=== PATIENT | male | born 1960 | race American Indian/Alaskan Native ===

== ENCOUNTER 2018-04-15 21:30 | Emergency (ER) | payer MEDICAID, OTHER ==
[2018-04-15 21:43] VITALS: BP 151/101; PULSE 74; RESP 20; TEMP 97.6; O2SAT 100
[2018-04-15] MEDS ORDERED: DiphenhydrAMINE 50 mg/ml Inj IM STA (22:13)
[2018-04-15] MEDS ORDERED: DiphenhydrAMINE 50 mg/ml Inj ONE (22:19)
--- NOTE | 2018-04-15 22:27 | C.PDOC ---
History Of Present Illness 58 year old male presents to the ER with a complaint of itchy rash to the bilateral groin area for the past 2 weeks. Patient states the rash is now severely itchy and radiating to the right hip, he initially put peroxide water on it with relief but has now worsened over the past few days. Denies use of new meds or OTC topical medication use. Time Seen by Provider: 04/15/18 21:47 Chief Complaint (Nursing): Abnormal Skin Integrity History Per: Patient History/Exam Limitations: no limitations Onset/Duration Of Symptoms: Days Current Symptoms Are (Timing): Still Present Quality Of Symptoms: Itching Recent travel outside of the [place]: No Past Medical History Reviewed: Historical Data, Nursing Documentation, Vital Signs Vital Signs: Last Vital Signs Temp 97.6 F 04/15/18 21:40 Pulse 74 04/15/18 21:40 Resp 20 04/15/18 21:40 BP 151/101 H 04/15/18 21:40 Pulse Ox 100 04/15/18 21:40 - Medical History PMH: HTN Denies: Diabetes, Hepatitis, HIV, Seizures, Sexually Transmitted Disease Family History: States: Unknown Family Hx - Social History Hx Tobacco Use: No Hx Alcohol Use: Yes Hx Substance Use: Yes - Immunization History Hx Tetanus Toxoid Vaccination: No Hx Influenza Vaccination: No Hx Pneumococcal Vaccination: No Review Of Systems Constitutional: Negative for: Fever, Chills Skin: Positive for: Rash Neurological: Negative for: Weakness, Numbness Physical Exam - Physical Exam Appears: Non-toxic Skin: Warm, Dry Head: Atraumatic, Normacephalic Eye(s): bilateral: Normal Inspection Male Genital: Other (Moderate dry skin, excoriation, and erythema to bilateral inguinal area and right hip. No vesicles, hives, mass, or adenopathy.) Neurological/Psych: Oriented x3, Normal Speech ED Course And Treatment O2 Sat by Pulse Oximetry: 100 (Room air) Pulse Ox Interpretation: Normal Progress Note: Benadryl and prednisone administered. Patient reports improvement of itching, he is resting comfortably in no acute distress, vitals are stable, will discharge home with Rx and instructions to follow up with PMD. Disposition Counseled Patient/Family Regarding: Diagnosis, Need For Followup - Disposition Referrals: at [facility] [Outside] Disposition: HOME/ ROUTINE Disposition Time: 22:22 Condition: STABLE Additional Instructions: Please follow up with PMD Take medications as directed Avoid alcohol or peroxide to area Return to ER if worse Prescriptions: Clotrimazole/Betamethasone [Lotrisone] 1 applic TOP BID #60 g DiphenhydrAMINE [Benadryl] 50 mg PO Q6H #14 cap predniSONE [Prednisone] 40 mg PO DAILY #8 tab Instructions: Skin Rash (DC) Forms: [employer] (?) (Macedonian) - Clinical Impression Clinical Impression: Skin rash - 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 - Scribe Statement The provider has reviewed the documentation as recorded by the Scribamy Reyes All medical record entries made by the Justinoibamy were at my direction and personally dictated by me. I have reviewed the chart and agree that the record accurately reflects my personal performance of the history, physical exam, medical decision making, and the department course for this patient. I have also personally directed, reviewed, and agree with the discharge instructions and disposition.
== END 2018-04-15 22:39 | disposition home or self-care (01) ==
LOC: C.ER 21:30
DX: R21 Rash and other nonspecific skin eruption (principal); I10 Essential (primary) hypertension
CPT/HCPCS: 96372; 99283; J1200